=== PATIENT | male | born 1985 | race American Indian/Alaskan Native ===

== ENCOUNTER 2017-07-04 09:40 | Emergency (ER) | payer SELFPAY ==
[2017-07-04 09:47] VITALS: BP 150/91
[2017-07-04] MEDS ORDERED: MOTRIN PO ONE (12:09)
[2017-07-04] MEDS ORDERED: TYLENOL PO ONE (12:09)
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
== END 2017-07-04 12:33 | disposition home or self-care (01) ==
LOC: ED 09:40
DX: M79.1 Myalgia (principal); Z87.891 Personal history of nicotine dependence
CPT/HCPCS: 99281